=== PATIENT | female | born 1980 | race Asian ===

== ENCOUNTER 2019-01-24 09:22 | Inpatient (IN) | payer BC ==
--- NOTE | 2019-01-24 09:45 | RAD ---
Portable chest: HISTORY: Overdose COMPARISON: none FINDINGS: Lung meza are clear. Heart and mediastinum appear unremarkable. Vascularity is normal. Visualized osseous structures unremarkable. IMPRESSION: No acute finding
[2019-01-24 09:52] LABS: Bilirubin Negative (Negative); Blood, Urine Negative (Negative); Clarity CLOUDY (Clear); Glucose, Urine (Dipstick) Negative (Negative); Leukocyte Negative (Negative); Nitrite Negative (Negative); Protein, Urine (Dipstick) 30 mg/dL (Neg-Trace); Specific Gravity, Urine 1.023 (1.002-1.036); Urobilinogen 0.2 mg/dL (0.2-1.0); pH, Urine 6.5 (5.0-9.0)
[2019-01-24 09:52] LABS: #Basophils 0.1 thou/uL (0.0-0.2); #Eosinphils 0.2 thou/uL (0.0-0.7); #Lymphocytes 1.8 thou/uL (1.20-3.40); #Monocytes 0.7 thou/uL (0.11-0.59); #Neutrophils 9.9 thou/uL (1.40-6.50); %Basophils 0.7 % (0.0-1.0); %Eosinophils 1.8 % (0.0-10.0); %Monocytes 5.7 % (0.0-10.0); %Neutrophils 77.9 % (42.0-75.0); BHCG - Serum Negative (NEGATIVE); Hemoglobin 13.2 g/dL (12.0-16.0); Mean Corpuscular HGB CONC 32.6 g/dL (32.0-36.0); Mean Corpuscular Hemoglobin 27.4 pg (27.0-31.0); Mean Corpuscular Volume 84.2 fL (78.0-98.0); Platelet Count 498 thou/uL (130-400); Pregs Control Background? CLEAR/WHITE (CLR/WHITE); Pregs Control Bar Appear? YES (CONTROL BAR); RBC Distribution Width 12.4 % (11.5-14.5); Red Blood Cell (RBC) Count 4.82 mill/uL (4.20-5.40); White Blood Cell (WBC) Count 12.7 thou/uL (4.8-10.8)
[2019-01-24 09:57] LABS: Bacteria/HPF None Seen HPF (None Seen); Pathc Cast-AUWi Flag 1.08 (0-2.49); RBC/HPF 0-3 HPF (0-3); WBC/HPF 0-3 HPF (0-3)
[2019-01-24 10:02] LABS: ALT (SGPT) 29 U/L (8-55); AST (SGOT) 26 U/L (5-34); Acetaminophen Less than 6.0 mcg/mL (10.0-30.0); Albumin 4.4 g/dL (3.5-5.0); Alcohol Less than 10 mg/dL (Less than 10); Alkaline Phosphatase 94 U/L (40-150); Anion Gap 23 mmol/L (10-20); BUN (Urea Nitrogen) 9 mg/dL (7.0-18.7); Bilirubin, Total 0.3 mg/dL (0.2-1.2); Calc. Creatinine Clearance 0 mL/min (70-130); Calcium 9.9 mg/dL (7.8-10.44); Carbon Dioxide 14 mmol/L (22-29); Chloride 109 mmol/L (98-107); Estimated GFR-MDRD 54; Globulin 4.1 g/dL (2.4-3.5); Glucose 141 mg/dL (70-105); Potassium 3.4 mmol/L (3.5-5.1); Protein, Total 8.5 g/dL (6.0-8.3); Salicylate Less than 8.0 mg/dL (15.0-30.0); Sodium 143 mmol/L (136-145)
[2019-01-24 10:04] LABS: Amphetamine Detected (NotDetected); Barbiturates Screen Not Detected (NotDetected); Benzodiazepine Screen Not Detected (NotDetected); Cocaine Metabolite Screen Not Detected (NotDetected); Medtox Control Line Valid? VALID (VALID); Medtox Reader # READER 1; Methadone Not Detected (NotDetected); Methamphetamine Not Detected (NotDetected); Opiate Screen Not Detected (NotDetected); Oxycodone Screen Not Detected (NotDetected); Phencyclidine (PCP) Not Detected (NotDetected); THC/Cannabinoid Screen Not Detected (NotDetected); Tricyclic Screen Not Detected (NotDetected)
[2019-01-24 10:11] LABS: Hyaline Casts/LPF 0-3 HYALINE CAST LPF (0-3 Hyaline)
[2019-01-24 10:12] LABS: Crystals/HPF 1+ AMORPH URATES HPF (Negative)
[2019-01-24] MEDS ORDERED: Acetaminophen 325 MG TAB PO PRN (11:31)
[2019-01-24] MEDS ORDERED: Lorazepam 2 MG/ML VIAL SLOW IVP PRN (11:38)
[2019-01-24 13:30] LABS: #Basophils 0.1 thou/uL (0.0-0.2); #Lymphocytes 0.9 thou/uL (1.20-3.40); #Monocytes 0.5 thou/uL (0.11-0.59); #Neutrophils 9.2 thou/uL (1.40-6.50); %Basophils 0.5 % (0.0-1.0); %Eosinophils 0.5 % (0.0-10.0); %Lymphocytes 8.2 % (21.0-51.0); %Monocytes 4.5 % (0.0-10.0); %Neutrophils 86.4 % (42.0-75.0); Hemoglobin 12.2 g/dL (12.0-16.0); Mean Corpuscular HGB CONC 33.3 g/dL (32.0-36.0); Mean Corpuscular Hemoglobin 27.8 pg (27.0-31.0); Mean Corpuscular Volume 83.6 fL (78.0-98.0); Mean Platelet Volume 6.9 fL (7.4-10.4); Platelet Count 450 thou/uL (130-400); RBC Distribution Width 12.3 % (11.5-14.5); White Blood Cell (WBC) Count 10.6 thou/uL (4.8-10.8)
[2019-01-24 13:59] LABS: Lactic Acid 2.3 mmol/L (0.5-2.2)
[2019-01-24 14:00] LABS: Anion Gap 15 mmol/L (10-20); BUN (Urea Nitrogen) 6 mg/dL (7.0-18.7); Calc. Creatinine Clearance 0 mL/min (70-130); Calcium 8.5 mg/dL (7.8-10.44); Carbon Dioxide 17 mmol/L (22-29); Chloride 111 mmol/L (98-107); Estimated GFR-MDRD 84; Glucose 123 mg/dL (70-105); Potassium 3.6 mmol/L (3.5-5.1); Sodium 139 mmol/L (136-145)
[2019-01-24 14:32] VITALS: BP 129/77; BMI 34.3
[2019-01-24] MEDS: Sodium Chloride 0.9% 1,000 ML IV SCH (16:12)
--- NOTE | 2019-01-24 18:13 | HP ---
CHIEF COMPLAINT: Found down. HISTORY OF PRESENT ILLNESS: This patient is a 38-year-old female, who has some history of depression. The patient was found down by her this morning. He subsequently discovered that she had apparently taken approximately 30 Wellbutrin XR 150 mg tablets. He called 911. EMS found the patient to be awake and oriented and brought the patient to the hospital. En route, the patient had a seizure, which was a generalized tonoclonic episode. She received Versed dosing x2 and apparently had an episode of clear emesis prior to the seizure as well. In the Emergency Department, the patient has remained generally postictal. She has received 2 L of normal saline. Her is by her side at the moment with their two children. Apparently, there was some type of argument between them that might have precipitated the patient's overdose attempt. REVIEW OF SYSTEMS: Unobtainable; however, the patient's is unaware of the patient having any recent problems. PAST MEDICAL HISTORY: Depression. PAST SURGICAL HISTORY: . FAMILY HISTORY: Mother had diabetes per the patient's . SOCIAL HISTORY: The patient does not drink, smoke, or do drugs. She is . CURRENT MEDICATIONS: 1. Bupropion XL 150 mg one p.o. daily. 2. Phentermine 37.5 mg p.o. daily. 3. Topiramate 50 mg one-half p.o. at bedtime. 4. Fluoxetine 20 mg p.o. daily. 5. Of note, most of these bottles were all either empty or essentially empty and the patient is unaware of she is routinely taking any of these medications. He is also unsure if she might have taken any of these along with the Wellbutrin. ALLERGIES: NONE KNOWN. WE CANNOT ADEQUATELY BE CLARIFIED PRESENTLY. PHYSICAL EXAMINATION: VITAL SIGNS: Initially, pulse was 136, respirations 18, O2 saturation 91% on room air. Most recent BP 111/76, pulse 104, respirations 25, and O2 saturation 98% on room air. GENERAL APPEARANCE: Age-appropriate female, in no distress. She is lying supine in the hospital bed. She is asleep, but will awaken. She is still encephalopathic and will sometimes make sense with her speech, sometimes it is in coherent. HEENT: Pupils are reactive. She has no OP lesions. Very dry mouth and oral mucosa. NECK: Supple and symmetric. HEART: Tachycardic without murmurs, gallops, or rubs. LUNGS: Clear to auscultation bilaterally without wheezes or rales. ABDOMEN: Soft, nontender, and nondistended. Positive bowel sounds. No masses. No organomegaly. EXTREMITIES: No cyanosis, clubbing, or edema. Pulses are present and palpable. NEUROLOGIC: As above. The patient is encephalopathic. She is not moving much spontaneously. LABORATORY DATA: White count 12.7, hemoglobin 13.2, and platelets 498. Sodium 143, potassium 3.4, chloride 109, CO2 is 14, anion gap is 23, BUN 9, creatinine is 1.13, glucose 141, and lactic acid 10.0. LFTs normal. Albumin 4.4. TSH 2.96. test negative. Urinalysis is essentially negative. Urine drug screen positive for amphetamine. Chest x-ray is clear. IMPRESSION AND PLAN: 1. Suicide attempt. The patient will be medically cleared and then have consultation with [facility]. 2. Overdose. It appears to be largely Wellbutrin, although it is not impossible that she could have taken some of her other prescribed medications as well. The patient has had a seizure, likely due to the lowered seizure threshold from the Wellbutrin. If the patient will be admitted to intermediate care unit, continue with IV fluids and telemetry monitoring. Poison Control Center was contacted in the Emergency Department and recommended 12 hours of monitoring. 3. Seizure likely due to lower seizure threshold from the bupropion. The patient appears to be stable at the moment. Should she have a recurrence of seizure, may need to be loaded with antiepileptic in order to raise the seizure threshold. 4. Acute renal injury. The patient's most recent creatinine was in July and it was 0.87, it is now 1.13. We will continue to hydrate. 5. Lactic acidosis, likely secondary to the seizure. We will recheck. 6. Mild leukocytosis, likely stress reaction from seizure. 7. Thrombocytosis. Again, likely stress reaction from the overdose and seizure. We will continue to monitor. 8. Positive drug screen for amphetamines, likely due to the patient's phentermine. Job ID: [id number]
[2019-01-24] MEDS ORDERED: Ondansetron PF 4 MG/2 ML Vial IVP PRN (19:25)
--- NOTE | 2019-01-24 21:13 | CON ---
DATE OF CONSULTATION: 01/24/2019 CONSULTING PHYSICIAN: Moustapha Penny MD. REASON FOR CONSULTATION: Overdose. HISTORY OF THE PRESENT ILLNESS: The patient is a 38-year-old female who apparently took 30 tablets of extended-release Wellbutrin 150 mg. She apparently had a seizure on the field, had another one upon being wheeled up to [facility]. She has no previous history of seizure disorder. Apparently, she has been depressed. PAST MEDICAL HISTORY: Depression. PAST SURGICAL HISTORY: Unknown. SOCIAL HISTORY: Apparently works as a [employer]. ALLERGIES: NONE. MEDICATIONS: Prior to admission, Wellbutrin 150 mg XL daily. REVIEW OF SYSTEMS: Unreliable at this time secondary to the patient's confusion. PHYSICAL EXAMINATION: VITAL SIGNS: Temperature 98.1, pulse 126, respirations 18, O2 saturation 98% on room air, blood pressure 129/77. GENERAL: She is awake and in no distress. HEENT: Pupils are reactive. Sclerae anicteric. Extraocular movements intact. Oropharynx clear. NECK: No JVD. LUNGS: Clear to auscultation. CARDIAC: S1-S2 regular without murmur. ABDOMEN: Soft, nontender. EXTREMITIES: No edema. LABORATORY DATA: Drug screen positive for amphetamines. Urinalysis remarkable for trace ketones. Sodium 139, potassium 3.6, chloride 111, CO2 of 17, BUN 6, creatinine 0.7, glucose 123. Lactate 2.3. White blood cell count 10.6, hematocrit 36.8, and platelet count 450. Lactate was originally 10, it has come down to 2.3. ASSESSMENT: 1. Overdose with Wellbutrin. 2. Lactic acidosis, likely transient secondary to the seizure episode. PLAN: 1. The patient was inadvertently placed to [facility]. She will be moved over to [facility] for closer observation. She will be treated with IV fluids and supportive care. 2. Recheck labs tomorrow. Job ID: [id number]
[2019-01-25] MEDS: Sodium Chloride 0.9% 1,000 ML IV SCH (01:56)
[2019-01-25 05:40] LABS: #Eosinphils 0.1 thou/uL (0.0-0.7); #Lymphocytes 1.5 thou/uL (1.20-3.40); #Monocytes 0.8 thou/uL (0.11-0.59); #Neutrophils 7.5 thou/uL (1.40-6.50); %Basophils 0.4 % (0.0-1.0); %Eosinophils 0.6 % (0.0-10.0); %Lymphocytes 15.5 % (21.0-51.0); %Monocytes 8.5 % (0.0-10.0); %Neutrophils 75.1 % (42.0-75.0); Hemoglobin 11.6 g/dL (12.0-16.0); Mean Corpuscular HGB CONC 33.3 g/dL (32.0-36.0); Mean Corpuscular Volume 84.1 fL (78.0-98.0); Platelet Count 441 thou/uL (130-400); RBC Distribution Width 12.4 % (11.5-14.5); Red Blood Cell (RBC) Count 4.13 mill/uL (4.20-5.40)
[2019-01-25 06:01] LABS: Anion Gap 11 mmol/L (10-20); BUN (Urea Nitrogen) 4 mg/dL (7.0-18.7); Calc. Creatinine Clearance 140 mL/min (70-130); Calcium 8.6 mg/dL (7.8-10.44); Carbon Dioxide 21 mmol/L (22-29); Chloride 111 mmol/L (98-107); Estimated GFR-MDRD 79; Glucose 102 mg/dL (70-105); Potassium 3.3 mmol/L (3.5-5.1); Sodium 140 mmol/L (136-145)
[2019-01-25] MEDS ORDERED: Potassium Chloride 20 MEQ TAB PO SCH (08:15)
[2019-01-25] MEDS ORDERED: Enoxaparin Sodium 40 MG/0.4 ML SYRINGE SC SCH (09:00)
--- NOTE | 2019-01-25 10:57 | PRG ---
DATE OF SERVICE: 01/25/2019 SUBJECTIVE: The patient is doing well aside from tongue swelling. She says she is not having any suicidal thoughts currently. OBJECTIVE: VITAL SIGNS: On exam, temperature 97.4, pulse 95, blood pressure 114/74, and O2 saturation 97%. HEENT: Unremarkable except for swelling at the tip of her tongue. NECK: No JVD. CHEST: Clear. CARDIAC: S1 and S2. Regular. ABDOMEN: Soft. EXTREMITIES: No edema. LABORATORY DATA: White blood cell count 10, hematocrit 34.8, and platelet count 441. Sodium 140, potassium 3.3, chloride 111, CO2 of 21, BUN 4, creatinine 0.8, and glucose 102. ASSESSMENT: 1. Status post overdose. 2. Seizures. 3. Swollen tongue-likely better tongue during the seizure episode. PLAN: The patient is improving expectantly. I think she is medically stable for psychiatric disposition. No further Pulmonary recommendations. Job ID: [id number]
[2019-01-25 14:47] VITALS: TEMP 98.3
--- NOTE | 2019-01-25 21:15 | DIS ---
DATE OF ADMISSION: 01/24/2019 DATE OF DISCHARGE: 01/25/2019 PRIMARY CARE PROVIDER: Dr. Nader Arredondo. DISCHARGE DIAGNOSES: 1. Medication overdose. 2. Seizure. 3. Acute kidney injury. 4. Lactic acidosis. 5. Hypokalemia. CONDITION OF PATIENT ON THE DAY OF DISCHARGE: Stable. I assessed Ms. Jaquez on the day of discharge. She denies any chest pain or shortness of breath. Vital signs are stable. S1 and S2 are heard, regular. Lungs are clear to auscultation bilaterally. DISCHARGE MEDICATIONS: Her pre-admission home medications are unclear. It appears that she overdosed on bupropion XL, but she had other medication bottles that were empty are essentially empty. These include phentermine, topiramate, and fluoxetine. She is advised to follow up with her primary care provider for resumption of her home medications. HOSPITAL COURSE: Ms. Jaquez is a pleasant 38-year-old lady, who was admitted to [facility] on 01/24/2019, for Wellbutrin overdose as part of suicide attempt. She had seizure likely due to lowering of seizure threshold from bupropion. She was seen by Pulmonary and Critical Care Medicine, Dr. Tamayo. She was admitted to [facility] for closer monitoring. She improved clinically. She was seen by [facility], who had cleared her for management as outpatient. At the time of admission, she also had acute kidney injury with creatinine of 1.13, which resolved. She also had lactic acidosis, most likely secondary to seizure, with lactic acid level of 10.0 at the time of admission, improving to 2.3 later in the day on 01/24/2019. TSH during this hospitalization was normal. Urine drug screen was positive for amphetamines. She also had low potassium of 3.3 on the day of discharge, which is being replaced. On the day of discharge, she has sodium of 140, potassium 3.3, creatinine 0.82, calcium 8.6, white count 10,000, hemoglobin 11.6, and platelet count 441,000. She is advised to follow up with her primary care provider in 3 days time. Many thanks for allowing me to participate in your patient's care. Please feel free to contact me with any questions or concerns. DISCHARGE DESTINATION: Home. TIME SPENT: Total amount of time spent coordinating this discharge: 32 minutes. Job ID: [id number]
== END 2019-01-25 17:00 | disposition home or self-care (01) | DRG 918 ==
LOC: ERS 09:22 → 2SE 13:54 → OBSVTOIN 13:54 → IMCU/EMU 14:09
PROVIDERS: ADMIT Internal Medicine; ATTEND Internal Medicine
DX: T43.292A Poisoning by other antidepressants, intentional self-harm, initial encounter (principal); N17.9 Acute kidney failure, unspecified; E87.2 Acidosis; R56.9 Unspecified convulsions; F32.9 Major depressive disorder, single episode, unspecified; D47.3 Essential (hemorrhagic) thrombocythemia; E87.6 Hypokalemia; Z79.899 Other long term (current) drug therapy
CPT/HCPCS: 36415; 71045; 80048; 80053; 80306; 80307; 81003; 81015; 83605; 84443; 84703; 85025; 93005; 94760; A4353; J1650; J2405

== ENCOUNTER 2022-11-12 14:52 | Outpatient (CLI) | payer BC | END 2022-11-12 14:53 | disposition home or self-care (01) | LOC: BICMAMMO 14:52 | PROVIDERS: ATTEND Family Medicine | DX: Z12.31 Encounter for screening mammogram for malignant neoplasm of breast (principal) | CPT/HCPCS: 77063; 77067 ==